=== PATIENT | male | born 1940 | race Caucasian/White ===

== ENCOUNTER 2024-04-20 05:17 | Emergency (ER) | payer MEDICARE ==
[2024-04-20] MEDS ORDERED: Sodium Chloride 0.9% 10 ML Syringe FLUSH PRN (05:35)
[2024-04-20 06:11] LABS: BLOOD UREA NITROGEN,BUN 12 mg/dL (7-18); CALCIUM 8.7 mg/dL (8.6-10.2); CARBON DIOXIDE,CO2 29 mmol/L (21-32); CHLORIDE,CL 108 mmol/L (100-110); ESTIMATED GFR 74 mL/min (>60); GLUCOSE RANDOM 113 mg/dL (80-116); POTASSIUM,K 3.6 mmol/L (3.5-5.3); SODIUM,NA 145 mmol/L (135-145)
[2024-04-20 06:13] LABS: BASOPHILS ABSOLUTE AUTO 0.1 x10-3/uL (0.0-0.3); BASOPHILS PERCENT AUTO 0.8 % (0.3-3.8); EOSINOPHILS ABSOLUTE AUTO 0.3 x10-3/uL (0.0-0.6); EOSINOPHILS PERCENT AUTO 3.5 % (0.1-6.8); HEMOGLOBIN 15.7 g/dL (12.9-17.7); LYMPHOCYTES ABSOLUTE AUTO 0.9 x10-3/uL (0.5-4.5); LYMPHOCYTES PERCENT AUTO 10.4 % (15.8-45.3); MEAN CORPUSCULAR HEMOGLOBIN 30.6 pg (27.0-33.3); MEAN CORPUSCULAR HGB CONC 33.5 g/dL (28.7-35.3); MEAN CORPUSCULAR VOLUME 91.2 fL (80.8-98.7); MEAN PLATELET VOLUME 9.8 fL (6.7-11.0); MONOCYTES ABSOLUTE AUTO 0.4 x10-3/uL (0.0-1.2); NEUTROPHILS ABSOLUTE AUTO 7.4 x10-3/uL (1.7-6.9); NEUTROPHILS PERCENT AUTO 81.3 % (40.3-71.8); PLATELET COUNT,PLT 242 x10(3)uL (117-477); RED BLOOD CELL COUNT 5.15 x10(6)uL (3.90-5.90); RED CELL DISTRIBUTION WIDTH 14.8 % (12.4-15.0); WHITE BLOOD CELL COUNT,WBC 9.1 x10-3/uL (3.2-10.1)
[2024-04-20] MEDS: Losartan 50 MG Tab PO ONE ×2 (06:18→12:36)
[2024-04-20 06:24] LABS: ALANINE AMINOTRANSFERASE,ALT 25 U/L (12-36); ALBUMIN 3.8 g/dL (3.2-4.6); ALKALINE PHOSPHATASE 111 IU/L (56-112); ASPARTATE AMNIOTRANSFERASE,AST 26 IU/L (5-25); BILIRUBIN TOTAL 0.7 mg/dL (0.1-1.3); PROTEIN TOTAL,TP 7.6 g/dL (6.0-8.0)
[2024-04-20 06:26] LABS: TROPONIN I 76.8 pg/mL (4.0-60.3)
[2024-04-20 06:27] LABS: C-REACTIVE PROTEIN < 0.50 mg/dL (<0.50); ETHANOL BLOOD MEDICAL < 0.03 % (<0.03)
[2024-04-20] MEDS: Sodium Chloride 0.9% 1,000 ML IV SCH (06:47)
[2024-04-20 07:53] LABS: BILIRUBIN,URINE NEGATIVE (NEGATIVE); GLUCOSE,URINE NORMAL (NORMAL); KETONES,URINE NEGATIVE (NEGATIVE); LEUKOCYTE ESTERASE,URINE LARGE (NEGATIVE); NITRITE,URINE NEGATIVE (NEGATIVE); OCCULT BLOOD,URINE MODERATE (NEGATIVE); PROTEIN,URINE NEGATIVE (NEGATIVE); UROBILINOGEN,URINE NORMAL (NEGATIVE)
[2024-04-20 07:56] LABS: APPEARANCE,URINE SLIGHTLY CLOUDY (CLEAR); COLOR,URINE YELLOW (YELLOW)
[2024-04-20 07:57] LABS: BACTERIA,URINE FEW (NS); RBC,URINE 0-5 (0-5); SQUAMOUS EPITHELIAL CELLS,UR FEW (NS,R,O); WBC,URINE 40-50 (0-5)
[2024-04-20] MEDS: cefTRIAXone 1 GM Vial IVPUSH ONE (11:04)
[2024-04-20] MEDS: Iopamidol 755 Mg/ML 100 ML Bottle IV ONE (11:08)
[2024-04-20] MEDS: Lacosamide 100 MG Tab PO ONE (12:36)
[2024-04-20] MEDS: levETIRAcetam in NaCl (iso-os) 1,000 MG in Premix Bag 1 BAG IV ONE (12:37)
== END 2024-04-20 14:24 ==
LOC: FB.ED 05:17
DX: R41.82 Altered mental status, unspecified (principal); N39.0 Urinary tract infection, site not specified; I10 Essential (primary) hypertension; E03.9 Hypothyroidism, unspecified; E78.00 Pure hypercholesterolemia, unspecified; R77.8 Other specified abnormalities of plasma proteins; Z86.73 Personal history of transient ischemic attack (TIA), and cerebral infarction without residual deficits; Z79.899 Other long term (current) drug therapy
CPT/HCPCS: 36415; 70450; 71275; 80053; 80307; 81001; 83605; 83880; 84484; 85025; 85379; 86140; 87040; 87086; 87088; 87186; 93005; 93010; 96361; 96374; 96375; 99284; 99285; A9270; J0696; J1953; J7030; Q9967